=== PATIENT | male | born 1995 ===

== ENCOUNTER 2017-08-07 08:26 | Day surgery (SDC) | payer MEDICAID ==
[2017-08-01 11:30] VITALS: BMI 43.3
[2017-08-07] MEDS ORDERED: Bupivacaine HCl 0.25% PF (10 ml) Inj ONE (10:10)
[2017-08-07] MEDS ORDERED: Lidocaine 1% Inj (20ml) ONE (10:10)
[2017-08-07] MEDS ORDERED: ceFAZolin IV 1 gm in Dextrose 2 GM/100 ML BAG IVPB ONE (10:10)
[2017-08-07] MEDS ORDERED: Bupivacaine-Epi 0.25%-1:200,000 PF Inj ONE (10:10)
[2017-08-07] MEDS ORDERED: Lactated Ringer's 1,000 ML IV ONE ×2 (10:14)
[2017-08-07] MEDS ORDERED: Midazolam 2 MG/2 ML VIAL ONE (11:12)
[2017-08-07] MEDS ORDERED: Propofol 10 mg/ml Inj (20 ML) ONE ×2 (11:12→11:39)
[2017-08-07] MEDS ORDERED: Oxycodone/Acetaminophen 5/325 mg Tab PO PRN (11:47)
[2017-08-07 12:44] VITALS: BP 107/69; RESP 16
[2017-08-07 13:58] VITALS: PULSE 79; TEMP 98.1; O2SAT 99
--- NOTE | 2017-08-07 20:20 | OP ---
PROCEDURE DATE: 08/07/2017 PREOPERATIVE DIAGNOSIS: A 5 cm mass in the chest wall. POSTOPERATIVE DIAGNOSIS: A 5 cm mass in the chest wall. PROCEDURE PERFORMED: Wide deep excision (radical resection), 5 cm chest wall mass. SURGEON: Tee Joseph MD TYPE OF ANESTHESIA: Local sedation. ESTIMATED BLOOD LOSS: 40 mL. POSTOPERATIVE CONDITION: Stable. INDICATIONS FOR SURGERY: This is a 22-year-old male with a mass of his chest wall, which has been increasing in size and became more painful, now undergo wide deep removal. DESCRIPTION OF PROCEDURE: The patient was taken to the operating room. IV sedation was administered. The right chest was prepped and draped. Local anesthesia was infiltrated and a generous elliptical incision was made completely surrounding the mass. The mass was completely excised into the fascia. Bleeding was controlled using the Bovie. A larger chest wall blood vessel was repaired with Prolene. Generous tissue flaps were raised using the Bovie and a greater than 30 cm advancement flap closure was performed using multiple layers of Monocryl, subcuticular Monocryl, and skin clips. The patient tolerated the procedure well and returned to the recovery room in stable condition. Tee Joseph MD
== END 2017-08-07 13:52 | disposition home or self-care (01) ==
LOC: C.SDS 08:26
PROVIDERS: ATTEND Surgery
DX: L72.0 Epidermal cyst (principal)
CPT/HCPCS: 11406; 88307; J0690; J2250; J2704; J3010; J7120